=== PATIENT | male | born 2005 | race Caucasian/White ===

== ENCOUNTER 2023-01-05 13:22 | Emergency (ER) | payer MEDICAID ==
[2023-01-05] MEDS ORDERED: Acetaminophen/HYDROcodone 325-5 MG Tab PO ONE (13:55)
== END 2023-01-05 14:28 | disposition home or self-care (01) ==
LOC: JD.ED 13:22
DX: K62.89 Other specified diseases of anus and rectum (principal)
CPT/HCPCS: 99283; A9270